=== PATIENT | male | born 1945 | race Caucasian/White ===

== ENCOUNTER 2023-11-20 03:52 | Observation (INO) | payer OTHER, SELFPAY ==
[2023-11-19 23:15] VITALS: BP 170/84
[2023-11-20] VITALS (7 sets, daily range): BP systolic 149–167; BP diastolic 70–87; PULSE 64–73; O2SAT 97; BMI 27.1; BMI 26.2
--- NOTE | 2023-11-20 00:10 | ED.GENMED ---
History of Present Illness
General
Chief Complaint: Dizziness
Source: patient
Exam Limitations: none
Time Seen by Provider: 11/19/23 23:52
History of Present Illness
History of Present Illness:
This is a 78 year old male that comes in with c/o dizziness. States that this started this morning. States that he was working on his lawn tractor and he bent over and when he came up he was dizzy. States that he just felt out of it. States that at
when he came up he fell on his buttocks on the right side. States that he went to see the PCP and they did an ECG and was told to go see his daycare teacher. states that he is just not himself. States that he was very quiet all day and just
sitting around and this is not him. States that she also felt that his speech was off earlier in the day. Patient states that he just feels kind of out of it and that he is spinning. Denies any fever, chills, chest pain, SOB, abd pain, nausea,
vomiting, diarrhea, headache, urinary burning.
Past History
Past History
ED Past Medical History: NIDDM and Other (Detached retina. )
ED Past Surgical History: Other (Bilateral cataracts. Right cornea transplant, )
Social History
Tobacco: Former smoker
Alcohol: Occasional
Personal:
Living: with family
Review of Systems
Review of Systems
All Other Systems: ROS reviewed and negative except as documented in HPI and ROS
Constitutional: Reports no symptoms; Denies fever or chills
EENT: Reports no symptoms
Respiratory: Reports no symptoms; Denies cough or trouble breathing
Cardiac: Reports no symptoms; Denies chest pain
ABD/GI: Reports no symptoms; Denies abdominal pain, nausea, vomiting or diarrhea
: Reports no symptoms; Denies dysuria, frequency or urgency
Musculoskeletal: Reports no symptoms
Skin: Reports no symptoms
Neurological: Reports dizzy; Denies headache
Psychiatric: Reports no symptoms
Phy Exam
General Physical Exam
General Presentation: no apparent distress
General age: appears stated age
General Skin: warm and dry
General Habitus: elderly
General Mental: alert
General Hydration: appears well hydrated
ENT Exam
ENT Exam: TM's normal, pharynx normal and neck supple
Eye Exam
Eye Exam: other (left Pupil reactive. Right with corneal transplant and 4mm)
Cardiovascular Exam
Cardiovascular Exam: regular rate/rhythm, no edema, no murmur and normal peripheral pulses
Pulmonary Exam
Pulmonary Exam: lungs clear, no respiratory distress, no rales, chest non tender, no crackles, no rhonchi, no wheezing and no cough
Gastrointestinal Exam
Gastrointestinal Exam: normal bowel sounds, non tender, soft, no organomegaly, no pulsatile mass and non distended
NIH Stroke Score
Level of Consciousness: 0 - Alert
LOC questions: 0-Answers both correctly
LOC Commands: 0-Performs both correctly
Best Gaze: 0-Normal
Visual Bowman: 0=Normal, no visual loss
Facial palsy: 0=Normal, symmetrical
Motor - Right Arm: 0=No drift 10 seconds
Motor - Left Arm: 0=No drift 10 seconds
Motor - Right Le-Drift < 5 seconds
Motor - Left Le-No drift 5 seconds
Limb Ataxia: 0-Absent
Sensation: 0-Normal
Best Language: 0-No aphasia
Dysarthria: 0-Normal
Extinction and Inattention: 0-No abnormality
Total Score:: 1
Musculoskeletal Exam
Musculoskeletal Exam: full ROM and no edema
Skin Exam
Skin Exam: normal color, warm/dry, no rash and no petechia
Psychiatric Exam
Psychiatric Exam: normal mood/affect
Course
Orders/Labs/Results
Orders:
Orders
11/20/23 00:10
Electrocardiogram (*1) Urgent
Reason for Study: Vertigo / Dizzy
CT Head W/o Iv Contrast Urgent
Comment:
Reason For Exam: DIZZINESS
EKG- Treatment ONCE
11/20/23 00:12
Complete Blood Count/With Diff Urgent
Comprehensive Metabolic Panel Urgent
Prothrombin Time Urgent
Troponin I Urgent
11/20/23 00:44
Urinalysis Reflex To Culture Urgent
Date Specimen was Collected: 11/20/23
Time Specimen was Collected: 00:43
Urine Microscopic Reflex Cult Urgent
Abnormal Lab Results
11/20/23 11/20/23
00:12 00:44
RBC 4.47 L 10^6/uL
(4.70-6.10)
MCH 31.1 H pg
(27.0-31.0)
Plt Count 129 L 10^3/uL
(130-400)
MPV 10.7 H fL
(7.4-10.4)
Absolute Monos (auto) 0.7 H 10^3/uL
(0.1-0.6)
Monocytes % 9.5 H %
(1.7-9.3)
Glucose 123 H mg/dl
(70-99)
Ur Occult Blood Reflex 1+ A
(Negative)
11/20/23 00:12
11/20/23 00:12
Plt very slightly low. Glucose nonfasting. Troponin <0.012, PT 13.8 with INR 1.06, Urine negative for infection.
Vital Signs
Initial and Last Documented VS:
Initial Vital Signs
Temp Pulse Resp BP Pulse Ox
98.6 F 60 22 170/84 97
11/19/23 23:15 11/19/23 23:15 11/19/23 23:15 11/19/23 23:15 11/19/23 23:15
Last Documented Vital Signs
Temp Pulse Resp BP Pulse Ox
98.6 F 57 17 164/87 96
11/19/23 23:15 11/20/23 00:48 11/20/23 00:45 11/20/23 00:45 11/20/23 00:45
MDM/Problems Addressed
Differential Diagnosis Includes:
CVA, Vertigo
Chronic conditions affecting care:
This is a 78 year old male that comes in with c/o dizziness. States that he bent over to work on his tractor and when he got up he was dizzy and fell on his buttocks. States that he just feels out of it. states that he is not himself.
Will check labs and CT head.
Back into see patient. Explained that his blood work and CT of the head are normal. Patient was able to get up and walk but states that he is walking slower then his normal and patient states that he just feels off. Will admit for further
evaluation.
Chronic conditions affecting care: DM
Acute Exacerbation and/or Progression of Chronic Illness:
NA
*Radiology
Radiology exam reviewed: radiology read reviewed (CT head- night hawk- No acute intracranial hemorrhage. Mild atrophy. )
*Pulse Oximetry
Patient hypoxic: no
*EKG
Interpreted by ED Provider?: Yes
Heart Rate: 53
Rate: bradycardiac
Rhythm: sinus
[place]: normal axis
Interval: normal interval
QRS Pattern: right bundle branch block
Ischemia: T-wave inversion (V1. V2, V3, V4, V5, )
*Track Grinder Interpretation
Rate: normal
Heart Rate: 66
Rhythm: sinus
*Critical Care Note
Total Time (30-74mins, 75-104mins- exclusive of procedures): Not Applicable
ED Attending Note
-
Portions of this chart may have been created with voice recognition software.� Occasional wrong word or��sound alike� substitutions may have occurred due to the inherent limitations of voice recognition software.
Discharge Plan
Departure
Patient Disposition: Admit
Date of Disposition: 11/20/23
Time of Disposition: 01:21
Admit to: Telemetry
Presentation/result/management discussed w/ accepting MD/DO: Hospitalist
Patient with high blood pressure during this ER visit?: Yes
Condition: Good
Covid-19: Not Applicable
Discharge Problem:
Dizziness, nonspecific, Accidental fall
Prescriptions:
No Action
diltiazem HCl [DILT-XR] 240 MG capsule,ext.rel 24h degradable
240 mg PO DAILY
lovastatin 40 MG tablet
40 mg PO DAILY
aspirin 81 MG tablet
81 mg PO DAILY
hydrochlorothiazide 25 MG tablet
25 mg PO DAILY
Enalapril
20 mg PO DAILY
Multivitamin
1 tab PO DAILY
Prilosec
1 tab PO DAILY
Referrals:
Spring Quiroz MD [Family Provider] -
Interventions
Interventions:
*Risk Screen - Suicide Last Done: 11/19/23 23:15
*General Assessment Last Done: 11/20/23 00:20
*Neglect/Abuse Screening Last Done: 11/20/23 00:20
ED- Fall Risk Assessment Last Done: 11/20/23 00:20
*ED COVID-19 Vaccine History Last Done: 11/20/23 00:20
ED- Neurological Assessment Last Done: 11/20/23 00:35
ED- Cardiac Assessment Last Done: 11/20/23 00:35
Discharge Date and Time
Print Language: KAZAKH
[2023-11-20 00:33] LABS: INR 1.06; PT 13.8 Sec (11.4-14.6)
[2023-11-20 00:43] LABS: Troponin I < 0.012 ng/ml
[2023-11-20 00:52] LABS: % Basophils 0.7 % (0-2); % Eosinophils 2.4 % (0-6); % Immature Granulocytes 0.3 % (0-0.5); % Lymphocytes 23.4 % (20.5-51.1); % Monocytes 9.5 % (1.7-9.3); % Neutrophils 63.7 % (42.2-75.2); Absolute Basophils 0.1 10^3/uL (0-0.2); Absolute Eosinophils 0.2 10^3/uL (0-0.7); Absolute Lymphocytes 1.7 10^3/uL (1.2-3.4); Absolute Monocytes 0.7 10^3/uL (0.1-0.6); Absolute Neutrophils 4.6 10^3/uL (1.4-6.5); Hematocrit 39.8 % (39.0-52.0); Hemoglobin 13.9 g/dL (13.0-18.0); Mean Corp Hgb Conc. 34.9 g/dL (33.0-37.0); Mean Corpuscular Hgb 31.1 pg (27.0-31.0); Mean Platelet Volume 10.7 fL (7.4-10.4); Nucleated Red Blood Cells % 0 % (-); Platelet Count 129 10^3/uL (130-400); Red Blood Cell Count 4.47 10^6/uL (4.70-6.10); Red Cell Dist. Width 13.2 % (11.5-14.5); White Blood Cell Count 7.2 10^3/uL (4.8-10.8)
[2023-11-20 01:02] LABS: Urine Albumin Negative (Neg - Trace); Urine Bilirubin Negative (Negative); Urine Character Clear (Clear); Urine Color Yellow; Urine Glucose Negative (Negative); Urine Ketone Negative (Negative); Urine Leukocyte Negative (Negative); Urine Nitrite Negative (Negative); Urine Occult Blood 1+ (Negative); Urine Urobilinogen Negative (Neg - 1+)
[2023-11-20 01:03] LABS: ALT (SGPT) 23 U/L (0-50); AST (SGOT) 25 U/L (17-59); Albumin 3.9 g/dl (3.5-5.0); Alkaline Phosphatase 71 U/L (38-126); Blood Urea Nitrogen 17 mg/dl (9-20); Calcium 9.8 mg/dl (8.4-10.2); Carbon Dioxide 26 mmol/L (22-30); Chloride 105 mmol/L (98-107); Glucose 123 mg/dl (70-99); Potassium 3.7 mmol/L (3.5-5.1); Sodium 143 mmol/L (135-145); Total Bilirubin 0.4 mg/dl (0.2-1.3); Total Protein 6.3 g/dl (6.3-8.2); eGFR > 60.00
[2023-11-20] MEDS: NSS 1000 IV (01:29)
[2023-11-20 02:00] LABS: Urine Bacteria Few (Negative); Urine White Cell 0-2 /HPF (0-5)
--- NOTE | 2023-11-20 02:58 | HPS.HSE ---
Family Physician
-
Family Physician: Spring Quiroz
Chief Complaint
-
Dizziness
History of Present Illness
This is a 6-year-old male with past medical history of hypertension, hyperlipidemia, diabetes, GERD, BPH presenting to the emergency department with dizziness after a fall at home.
Patient reports that when he arose he was not in his usual state of health. He was vague but states that he just does not feel well ('out of it') although he could not endorse any specific symptoms initially. He stated that he had breakfast as
usual. Did some work in his garage without any events. However when he was 18 and walk with his lawnmower he had to bend down to do something and when he did that he felt a spinning sensation and he fell to the floor. He did not hit his head. He
landed on his buttocks and had some discomfort there. Patient has not had any spinning sensation since. He denies any nausea or vomiting. Denies having any chest pain. He denies any shortness of breath. Denies any new or ongoing dyspnea on
exertion. Patient denies having palpitations. He has had no cough fevers or chills. He denies any abdominal pain. He has no diarrhea. He has no leg swelling. He has no rash or erythema in any of his joints. Patient denies any new medication
changes. Patient denies any facial asymmetry, dysarthria, dysphagia, numbness tingling or weakness in his extremities. He has no dysuria or hematuria or changes urination.
Saw PCP today who did an ECG and asked him to see a readiness paraprofessional. Spouse reports that the patient has been more quiet.
In the ED he was afebrile, normotensive and has normal oxygen saturation on room air. ECG shows a sinus bradycardia at a rate of [address] or T wave changes. He does have a right bundle which is a change from nonspecific and
ventricular conduction delay. Chemistries were unremarkable. CBC shows a platelet count of 129 (prior CBC showed previous thrombocytopenia). UA was negative. CT of the head shows no acute intracranial process.
Medical History
Past Medical History
Past Medical History: Reports HTN, Hypercholesterolemia and NIDDM
Past Surgical History: Reports None
Social History
Tobacco: Non-smoker
Alcohol: None
Drug: None
Personal:
Living: With Family
Employment: Retired
Family History
Family History: Not pertinent
Allergies / Home Medications
Allergies reflects when Allergies were last updated in [employer].
Home Medications with original date entered in [employer]
Allergy/Medication List:
Allergies
Allergy/AdvReac Type Severity Reaction Status Date / Time
No Known Allergies Allergy Verified 11/19/23 23:19
Home Medications
metFORMIN HCl 500 MG TAKE 1 TABLET BY MOUTH ONCE DAILY WITH A MEAL for 90 Nov, Active
Finasteride 5 MG 1 tablet Orally Once a day for 90 days Nov, Active
Difluprednate 0.05 % 1 drop left eye Ophthalmic three times a day Nov, Active
Centrum Silver Adult 50+ - take 1 tablet Orally once a day Nov, Active
OneTouch Ultra - TEST ONCE DAILY for 90 Nov, Active
Valsartan 320 MG 1 tablet Orally Once a day Nov, Active
dilTIAZem HCl ER 300 MG TAKE ONE TABLET BY MOUTH IN THE MORNING ON A EMPTY STOMACH for 90 Nov, Active
Omeprazole 20 MG TAKE 1 CAPSULE BY MOUTH EVERY DAY for 90 Nov, Active
hydroCHLOROthiazide 25 MG TAKE 1 TABLET BY MOUTH EVERY DAY for 90 days Nov, Active
Atorvastatin Calcium 20 MG TAKE 1 TABLET BY MOUTH EVERY DAY AT BEDTIME for 90 days Nov,
Review of Systems
-
History Source: Patient
Constitutional: Reports Sleep Disturbance
EENT: Reports No Symptoms
Respiratory: Reports No Symptoms
Cardiac: Reports No Symptoms
Abdomen/GI: Reports No Symptoms
: Reports No Symptoms
Musculoskeletal: Reports No Symptoms
Skin: Reports No Symptoms
Neurological: Reports Dizzy
Endocrine: Reports No Symptoms
Hematologic/Lymphatic: Reports No Symptoms
Psych: Reports No Symptoms
Physical Exam
Vital Signs
Vital Signs
Temp Pulse Resp BP Pulse Ox
98.6 F 59 17 149/74 96
11/19/23 23:15 11/20/23 02:45 11/20/23 02:45 11/20/23 01:00 11/20/23 02:45
Physical Exam
General: Well Developed, Well Nourished, No Apparent Distress and Comfortable
HEENT: NormoCephalic, Anicteric, Moist mucous membranes, Atraumatic and PERRLA
Respiratory: Clear
Cardiac: S1/S2 and Regular Rhythm
Breast: Deferred by me
GI: Soft, Non Tender, Non Distended and Normal Bowel Sounds
Rectal: Deferred by Provider
Genito-urinary: Deferred by me
Musculoskeletal: No Clubbing, No Cyanosis and No Edema
Skin: Warm
Neuro: AO x 3
Hematologic/Lymphatic: No Lymphadenopathy
Psych: Calm
Laboratory Results
-
11/20/23 00:12
11/20/23 00:12
Laboratory Results
PT 13.8 Sec (11.4-14.6) 11/20/23 00:12
INR 1.06 11/20/23 00:12
Total Bilirubin 0.4 mg/dl (0.2-1.3) 11/20/23 00:12
AST 25 U/L (17-59) 11/20/23 00:12
ALT 23 U/L (0-50) 11/20/23 00:12
Alkaline Phosphatase 71 U/L (38-126) 11/20/23 00:12
Troponin I < 0.012 ng/ml 11/20/23 00:12
Data Reviewed
-
CT Scan: Report Reviewed by me
Medical Tests (Nuc Med, Echo, EKG etc): Image Personally Visualized and interpreted
Lab Data: Labs Reviewed by me
Old Records: Reviewed
Impression/Plan
-
IMPRESSION:
78-year-old with multiple comorbidities presenting with dizziness and feeling out of it after a fall in the setting of a vertiginous episode. Patient reported bending down while walking on the machine and then having a spinning sensation and fall
and hitting his bottom. No LOC. No recurrent episodes since then. He still feels like he is not his usual self ('out of it'). Workup in the ED has been unremarkable. Troponin was negative. UA was unremarkable. ECG shows sinus bradycardia but
otherwise unremarkable. CBC shows thrombocytopenia which is known from prior. Chemistries are within normal limits. CT of the head shows no acute stroke or bleed or mass. Neurological exam is completely intact. He has no confusion or
forgetfulness on my evaluation.
PLAN:
1. Dizziness -very nonspecific symptoms. Currently denies any vertigo or lightheadedness. He denies any nausea. He is not having chest pain dyspnea on exertion. He is not having any headaches. He has no changes in vision or double vision.
Neurological exam was intact. Infectious workup so far has been negative. No finding to specifically explain his uneasiness.. Will continue neuro and cardiac as well as infectious workup as stated below.
- admit to telemetry for possible tia/cva and to monitor cardiac rhythm
- aspirin/statin
- check orthostatic vs
- check covid and
- mri brain
- pt evaluation.
2. Dm II
- Insulin sliding scale
3. HTN -
- valsartan 320, diltiazem 300
- hctz 25
- continue statin
4. BPH
- finasteride
DVT PPX - lovenox sq
Code status - full code
[2023-11-20 04:22] LABS: COVID-19 Antigen Negative (Negative)
--- NOTE | 2023-11-20 05:00 | PTCARENOTE ---
Pt received from ED to 418-1. Pt oriented to room and call saunders.
[2023-11-20 08:24] LABS: Glucose - Point of Care 114 mg/dl (70-99)
[2023-11-20] MEDS: PROTONIX 20 MG PO (08:28)
[2023-11-20] MEDS: DIOVAN 320 MG PO (08:28)
[2023-11-20] MEDS: PROSCAR 5 MG PO (08:28)
[2023-11-20] MEDS: LOW STRENGTH ASPIRIN 81 MG PO (08:28)
[2023-11-20] MEDS: CARDIZEM CD 300 MG PO (08:29)
--- NOTE | 2023-11-20 10:53 | W.PN.HOSP.TC ---
Today's Communication/Plan
-
Follow-up MRI
PT/OT eval, vestibular therapy if warranted
Assessment / Plan
Assessment / Plan
#Vertigo
-BPPV is highest on differentials; cannot rule out orthostasis or vestibular neuritis; low suspicion for CVA
-States that his symptoms started after he was bending over to pick something up, involved room spinning
-Infectious workup unremarkable, cannot rule out occult viral infection
-CT head was without any acute findings, no signs of transcortical infarct or mass effect; telemetry unremarkable
-MRI brain was ordered on admission, will follow-up result
-PT/OT ordered, will benefit from vestibular therapy
-Monitor neurochecks for now, follow-up orthostats
#T2DM
-Not currently on any antihyperglycemic's, no recent A1c
-Started on ISS with Accu-Cheks on admission
-Will monitor insulin requirements here, will need follow-up with PCP
#Hypertension
-No known history of hypertensive systemic disease
-Home regimen includes valsartan, hydrochlorothiazide, diltiazem
-Blood pressure here is adequate
#Dyslipidemia
-No history of ASCVD, Home medications include statin
#BPH
-No known history of outlet obstruction, remains on finasteride
DVT prophylaxis: Lovenox
Diet: Regular
CODE STATUS: Full code
Anticipated Discharge: Within 24 hours
Subjective/Interval History
-
Date of Service: November 20, 2023
Seen and examined at bedside. No acute events overnight. AFVSS this morning. Telemetry showing occasional PVCs
He states yesterday that he was bending over to pick something up in his garage, after which he developed symptoms of the room spinning. States he has not had this happen before. Denies any history of cardiac disease or previous cerebrovascular
disease. As of this morning he is asymptomatic and states he feels well.
He denies chest pain, fevers or chills, shortness of breath, palpitations, lightheadedness/syncope, gastrointestinal issues, urinary issues, abnormal bleeding or bruising, paresthesia or weakness
Objective Data
-
Labs:
Laboratory Results
11/20/23
00:12
WBC 7.2
Hgb 13.9
Hct 39.8
Plt Count 129 L
PT 13.8
INR 1.06
Sodium 143
Potassium 3.7
Chloride 105
Carbon Dioxide 26
BUN 17
Creatinine 0.9
Glucose 123 H
Calcium 9.8
Total Bilirubin 0.4
AST 25
ALT 23
Alkaline Phosphatase 71
Vital Signs:
Vital Signs
Temp Pulse Resp BP Pulse Ox
98 F 58 18 155/70 98
11/20/23 08:01 11/20/23 08:01 11/20/23 08:01 11/20/23 08:01 11/20/23 08:01
Review of Systems
-
History Source: Patient
All other systems: Reviewed and negative
Physical Exam
-
General: Well Nourished, No Apparent Distress and Comfortable
HEENT: Normocephalic, Atraumatic, Moist Mucous Membranes and Anicteric
Respiratory: Clear to Auscultation and Non Labored Respirations; Negative Wheezes, Rales or Rhonchi
Cardiac: Regular Rhythm and S1/S2; Negative Murmur, Rub, JVD or Gallop
GI: Soft, Nontender, Nondistended and Normal Bowel Sounds
Musculoskeletal: No Clubbing, No Cyanosis and No Edema
Skin: Warm, Dry and Normal Turgor; Negative Rash
Neuro: AO x 3, No Motor Deficits, Central Nerve's Intact and No Sensory Deficits; Negative Tremors, Slurred Speech or Facial Droop
Psych: Calm
Data Reviewed
-
Labs: Labs Reviewed by me and Discussed with Patient
--- NOTE | 2023-11-20 10:55 | CM ---
Patient seen bedside with spouse.
[patient independent prior to admission without assistive devices.
patient lives in a 2 story home, no difficulties with stairs.
No food, utility or transportation insecurities.
No hx VN or SNF.
[facility] form completed.
PCP: Dr Quiroz
Pharmacy:[facility]
Plan: home no needs anticipated.
r
[2023-11-20 12:21] LABS: Glucose - Point of Care 108 mg/dl (70-99)
--- NOTE | 2023-11-20 14:33 | W.DCSUMMARY ---
Discharge Summary
Discharge Data
Date of Admission: 11/20/23
Date of Discharge: 11/20/23
-
Pending Results: No
Hospital Course
78-year-old male with T2DM, GERD, BPH, HTN, HLD that presented to the hospital with the complaint of dizziness. 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 He
had a fall associated with the symptoms, landed onto his buttocks, does not appear to have lost consciousness at any point.
Upon arrival to the ED his initial CT scan was without signs of acute ischemia, hemorrhage, mass effect. MRI of the brain with and without contrast was performed and showed no evidence of acute CVA. It did show some mild to moderate cortical
atrophy as well as evidence of possible old microhemorrhages. Orthostatic vital signs were negative. Urinalysis and COVID testing were without signs of infection. He was treated with aspirin and statin empirically, as they were also on his home
medications. He did have PACs on initial EKG, some PVCs seen overnight. Relatively low burden, 1 episode of 'R on T PVC' noted by telemetry though this appears more consistent with artifact than true phenomenon. Not associated with symptoms.
He felt well and had no recurrence of symptoms while in the hospital. High suspicion for inner ear etiology such as BPPV versus vestibular neuritis. Physical therapy evaluated and recommended outpatient PT and vestibular therapy. He was provided
of prescription for PT/VT and a prescription of meclizine as needed every 8 hours for vertiginous symptoms. Encouraged follow-up with primary care doctor and brief writer. Provided cardiology referral for follow-up with PVC and PACs, consideration
for low-dose beta-edy.
Discharge Plan
-
Patient Disposition: Home (Routine Discharge)
Discharge Diagnosis/Procedures: Vertigo
Fall at home
Condition: Good
Diet: Diabetic, Carb Controlled
Activity: As tolerated
Additional Activity: Use caution for recurrence of vertiginous symptoms
Driving Restrictions: No driving for 24 hours
Bathing Restrictions: None
Blood Work: None
Others Tests: None
Activity Restrictions/Additional Instructions:
Following discharge from the hospital schedule an appointment with your family doctor and brief writer within 7 days for routine follow-up. If you do not have brief writer, referral is provided below.
If you develop new symptoms such as palpitations, chest pain, or episodes of passing out then please return to the emergency department
Instructions: Vertigo (a type of dizziness), Vestibular Exercises
Referrals:
Spring Quiroz MD [Family Provider] -
Additional Discharge Medication Instructions: Start meclizine 25 mg up to 3 times daily as needed for vertigo
Resume your home medications as previously prescribed
Prescriptions:
New
meclizine 25 mg Tablet
25 mg PO Q8HPRN PRN (Reason: vertigo) 30 Days Qty: 30 0RF
valsartan 80 mg Tablet
320 mg PO DAILY 30 Days Qty: 120 0RF
atorvastatin 20 mg Tablet
20 mg PO QPM 30 Days Qty: 30 0RF
diltiazem HCl 300 mg Capsule,Extended Release 24hr
300 mg PO DAILY 30 Days Qty: 30 0RF
finasteride 5 mg Tablet
5 mg PO DAILY 30 Days Qty: 30 0RF
pantoprazole 20 mg Tablet,Delayed Release (Dr/Ec)
20 mg PO DAILY 30 Days Qty: 30 0RF
Continued
aspirin 81 MG tablet
81 mg PO DAILY
Multivitamin
1 tab PO DAILY
Discontinued
diltiazem HCl [DILT-XR] 240 MG capsule,ext.rel 24h degradable
240 mg PO DAILY
lovastatin 40 MG tablet
40 mg PO DAILY
hydrochlorothiazide 25 MG tablet
25 mg PO DAILY
Enalapril
20 mg PO DAILY
Prilosec
1 tab PO DAILY
Discharge Orders:
Discharge Patient (As Directed); Ordered 11/20/23
Ordered By: Maxim Bo
Discharge Date and Time
Print Language: ROMANSH
[2023-11-20] MEDS: KCL 40 MEQ PO (14:39)
== END 2023-11-20 15:33 | disposition home or self-care (01) ==
LOC: 4 WEST ACU 03:52
PROVIDERS: Clinical Nurse Specialist Family Health; ADMITTING PHYSICIAN Internal Medicine; ATTENDING PHYSICIAN Internal Medicine; EMERGENCY PHYSICIAN Emergency Medicine; FAMILY PHYSICIAN Family Medicine
DX: R42 Dizziness and giddiness (principal); W01.0XXA Fall on same level from slipping, tripping and stumbling without subsequent striking against object, initial encounter; Y93.H2 Activity, gardening and landscaping; Y92.007 Garden or yard of unspecified non-institutional (private) residence as the place of occurrence of the external cause; R00.1 Bradycardia, unspecified; I45.10 Unspecified right bundle-branch block; I49.1 Atrial premature depolarization; E78.5 Hyperlipidemia, unspecified; I10 Essential (primary) hypertension; K21.9 Gastro-esophageal reflux disease without esophagitis; E11.36 Type 2 diabetes mellitus with diabetic cataract; N40.0 Benign prostatic hyperplasia without lower urinary tract symptoms; E78.00 Pure hypercholesterolemia, unspecified; I73.9 Peripheral vascular disease, unspecified; Z11.52 Encounter for screening for COVID-19; Z87.891 Personal history of nicotine dependence; Z79.82 Long term (current) use of aspirin
CPT/HCPCS: 70450; 70551; 80053; 81003; 81015; 82962; 84484; 85025; 85610; 87811; 93005; 96360; 97112; 97163; 97530; 99285; G0378

== ENCOUNTER → 2024-11-17 14:24 | Outpatient (REF) | payer OTHER, SELFPAY | LOC: RAD 14:24 | PROVIDERS: ATTENDING PHYSICIAN Family Medicine | DX: M54.2 Cervicalgia (principal) | CPT/HCPCS: 72050 ==